=== PATIENT | female | born 1995 ===

== ENCOUNTER 2017-02-27 06:04 | Emergency (ER) | payer BC ==
[2017-02-27 06:15] VITALS: O2SAT 100
[2017-02-27 06:45] LABS: RBC URINE 4 /hpf (0-3); URINE BACTERIA MANY (<OCC); WBC URINE 42 /hpf (0-5)
[2017-02-27 06:46] LABS: URINE BILIRUBIN NEGATIVE (NEGATIVE); URINE COLOR Yellow (YELLOW); URINE GLUCOSE (UA) NORMAL (Normal); URINE KETONE NEGATIVE (NEGATIVE); URINE LEUKOCYTE ESTERASE 3+ Leu/uL (Negative); URINE PROTEIN NEGATIVE (NEGATIVE); URINE UROBILINOGEN NORMAL mg/dL (0.2-1.0)
[2017-02-27 06:47] LABS: URINE BLOOD 1+ (NEGATIVE)
[2017-02-27] MEDS ORDERED: Sodium Chloride 0.9% 1,000 ML IV ONE (07:13)
[2017-02-27] MEDS ORDERED: cefTRIAXone IV 1 gm in Dextros 50 ML IVPB ONE ×2 (07:14→07:29)
--- NOTE | 2017-02-27 07:18 | C.PDOC ---
History Of Present Illness 22 yo female no prior hx, presents with abdominal pain x 4 hours. pt states unsure if she is . states she has dysuria. has nausea no vomiting. no fevers, no diarrhea, no other complaints Time Seen by Provider: 02/27/17 07:10 Chief Complaint (Nursing): Abdominal Pain Past Medical History Reviewed: Historical Data, Nursing Documentation, Vital Signs Vital Signs: Last Vital Signs Temp 97.9 F 02/27/17 06:13 Pulse 91 H 02/27/17 06:13 Resp 16 02/27/17 06:13 BP 119/68 02/27/17 06:13 Pulse Ox 100 02/27/17 07:20 Family History: States: Unknown Family Hx - Social History Hx Alcohol Use: Yes Hx Substance Use: No - Immunization History Hx Tetanus Toxoid Vaccination: No Hx Influenza Vaccination: No Hx Pneumococcal Vaccination: No Review Of Systems Gastrointestinal: Positive for: Nausea, Abdominal Pain. Negative for: Vomiting Physical Exam - Physical Exam Appears: Well, No Acute Distress Skin: Normal Color, Warm, Dry Eye(s): bilateral: Normal Inspection, PERRL, EOMI Nose: Normal Throat: Normal Neck: Normal Cardiovascular: Rhythm Regular Respiratory: Normal Breath Sounds Gastrointestinal/Abdominal: Normal Exam, Soft, Tenderness (epigastric), No Guarding, No Rebound Back: Normal Inspection Extremity: Normal ROM ED Course And Treatment - Laboratory Results Result Diagrams: 02/27/17 07:25 02/27/17 07:25 O2 Sat by Pulse Oximetry: 100 Medical Decision Making Medical Decision Making: consider g astritis, pud, uti. labs hydration, pain control, reassess 850: pt reassesed. abd soft no rlq ttp, mild suprapubic ttp. labs unremarkable. advise outpt f/u and return precautions Disposition - Disposition Referrals: [facility] [Outside] [facility] [Outside] [place] [facility] [employer] [Outside] Disposition: HOME/ ROUTINE Disposition Time: 08:52 Condition: STABLE Additional Instructions: please follow up with your doctor/clinic. return to er with worsening symptoms or concerns. Prescriptions: Nitrofurantoin Macrocrystals [Macrobid] 100 mg PO BID #14 cap Instructions: Urinary Tract Infection in Women (GEN), Acute Abdominal Pain (ED) Print Language: UKRAINIAN - Clinical Impression Clinical Impression: Abdominal pain, UTI (urinary tract infection)
[2017-02-27] MEDS ORDERED: Sodium Chloride 0.9% 1,000 ML ONE (07:29)
[2017-02-27 07:30] LABS: BASO # 0.1 K/uL (0.0-0.2); BASO % 0.9 % (0.0-2.0); EOS # 0.4 K/uL (0.0-0.7); EOS % 4.6 % (0.0-4.0); HEMATOCRIT 34.7 % (34.0-47.0); LYMPH # 2.6 K/uL (1.0-4.3); LYMPH % 33.1 % (20.0-40.0); MEAN CELL VOLUME 81.8 fL (81.0-99.0); MEAN CORPUSCULAR HEMOGLOBIN 26.6 pg (27.0-31.0); MEAN CORPUSCULAR HGB CONC 32.5 g/dL (33.0-37.0); MEAN PLATELET VOLUME 10.7 fL (7.2-11.7); MONO # 0.5 K/uL (0.0-0.8); RED CELL DISTRIBUTION WIDTH 13.5 % (11.5-14.5); WHITE BLOOD COUNT 7.8 K/uL (4.8-10.8)
[2017-02-27 07:45] LABS: CHLORIDE 101 mmol/L (98-107); POTASSIUM 3.7 mmol/L (3.6-5.2); SODIUM 137 mmol/L (132-148)
[2017-02-27 07:47] LABS: ALKALINE PHOSPHATASE 68 U/L (38-126); AST/SGOT 21 U/L (14-36); BILIRUBIN,TOTAL 0.3 mg/dL (0.2-1.3); CARBON DIOXIDE 26 mmol/L (22-30); GFR AFRICAN-AMERICAN > 60
[2017-02-27 07:48] LABS: ALB/GLOB RATIO 1.2 (1.0-2.1); ALT/SGPT 22 U/L (9-52); BLOOD UREA NITROGEN 16 mg/dL (7-17); CALCIUM 8.6 mg/dl (8.6-10.4); GLUCOSE,RANDOM 89 mg/dL (65-105); TOTAL PROTEIN 6.6 g/dL (6.3-8.3)
[2017-02-27 09:07] VITALS: BP 98/57; PULSE 70; RESP 18; TEMP 97.8
== END 2017-02-27 09:07 | disposition home or self-care (01) ==
LOC: C.ER 06:04
DX: N39.0 Urinary tract infection, site not specified (principal); R10.13 Epigastric pain
CPT/HCPCS: 80053; 81001; 83690; 84703; 85025; 85610; 85730; 96361; 96365; 96375; 99285; J0696; J1885; J2405; J7040

== ENCOUNTER 2017-05-19 11:04 | Emergency (ER) | payer BC ==
[2017-05-19 11:20] VITALS: RESP 18
[2017-05-19] MEDS ORDERED: Sodium Chloride 0.9% 1,000 ML IV ONE (11:38)
--- NOTE | 2017-05-19 11:43 | C.PDOC ---
History Of Present Illness 22 y/o female presents to ED with complaints of Headache and lower back pain 3/10 since Monday. Patient states pain was worse today and took Tylenol at 7am with minimal improvement which prompted visit to ED. Patient is 13 weeks and reports 2 vomiting episodes yesterday with an associated diffuse abdominal pain that started today. An ultrasound was done by PMD 3 weeks ago with normal results. Patient denies fever, chills, vision changes, diarrhea, urinary symptoms or any other complaints at this time. Time Seen by Provider: 05/19/17 11:34 Chief Complaint (Nursing): Headache History Per: Patient History/Exam Limitations: no limitations Onset/Duration Of Symptoms: Days Current Symptoms Are (Timing): Still Present Past Medical History Reviewed: Historical Data, Nursing Documentation, Vital Signs Vital Signs: Last Vital Signs Temp 98.9 F 05/19/17 11:19 Pulse 106 H 05/19/17 11:19 Resp 18 05/19/17 11:19 BP 111/72 05/19/17 11:19 Pulse Ox 99 05/19/17 11:48 Family History: States: Unknown Family Hx - Social History Hx Alcohol Use: Yes Hx Substance Use: No - Immunization History Hx Tetanus Toxoid Vaccination: No Hx Influenza Vaccination: No Hx Pneumococcal Vaccination: No Review Of Systems Except As Marked, All Systems Reviewed And Found Negative. Constitutional: Negative for: Fever, Chills Cardiovascular: Negative for: Chest Pain Respiratory: Negative for: Shortness of Breath Gastrointestinal: Positive for: Nausea, Vomiting, Abdominal Pain. Negative for : Diarrhea Genitourinary: Negative for: Dysuria, Vaginal Bleeding Musculoskeletal: Positive for: Back Pain Skin: Negative for: Rash Neurological: Positive for: Headache Physical Exam - Physical Exam Appears: Non-toxic, No Acute Distress Skin: Normal Color, Warm, No Rash Head: Atraumatic, Normacephalic Eye(s): bilateral: Normal Inspection Oral Mucosa: Moist Lips: Other (Fever blister lower left lip) Cardiovascular: Rhythm Regular Respiratory: Normal Breath Sounds, No Rales, No Rhonchi, No Wheezing Gastrointestinal/Abdominal: Soft, No Tenderness, No Guarding, No Rebound Extremity: Normal ROM Neurological/Psych: Oriented x3, Normal Speech ED Course And Treatment - Laboratory Results Result Diagrams: 05/19/17 12:23 O2 Sat by Pulse Oximetry: 99 (RA) Pulse Ox Interpretation: Normal Disposition - Disposition Disposition Time: 12:29 Condition: STABLE Forms: [employer] (Mauritian) - Clinical Impression Clinical Impression: Headache, Vomiting alone, - Scribe Statement The provider has reviewed the documentation as recorded by the Scriberica De Souza All medical record entries made by the Scribe were at my direction and personally dictated by me. I have reviewed the chart and agree that the record accurately reflects my personal performance of the history, physical exam, medical decision making, and the department course for this patient. I have also personally directed, reviewed, and agree with the discharge instructions and disposition. Physician Patient Turnover Patient Signed Over To: Orquidea Preciado Handoff Comments: Patient endorsed to Dr. Preciado. + IUP, [place], WHITLEY, getting IV fluids, pending re-evaluation and dispo.
[2017-05-19] MEDS ORDERED: Sodium Chloride 0.9% 1,000 ML ONE (12:11)
[2017-05-19 12:23] LABS: RBC URINE 3 /hpf (0-3); URINE BILIRUBIN NEGATIVE (NEGATIVE); URINE BLOOD NEGATIVE (NEGATIVE); URINE COLOR Yellow (YELLOW); URINE GLUCOSE (UA) NORMAL (Normal); URINE KETONE NEGATIVE (NEGATIVE); URINE LEUKOCYTE ESTERASE NEG Leu/uL (Negative); URINE PROTEIN NEGATIVE (NEGATIVE); URINE UROBILINOGEN NORMAL mg/dL (0.2-1.0); WBC URINE 3 /hpf (0-5)
[2017-05-19 12:28] LABS: BASO # 0.1 K/uL (0.0-0.2); BASO % 0.6 % (0.0-2.0); EOS # 0.1 K/uL (0.0-0.7); EOS % 1.4 % (0.0-4.0); HEMATOCRIT 29.5 % (34.0-47.0); LYMPH # 1.8 K/uL (1.0-4.3); LYMPH % 19.6 % (20.0-40.0); MEAN CELL VOLUME 80.8 fL (81.0-99.0); MEAN CORPUSCULAR HEMOGLOBIN 26.9 pg (27.0-31.0); MEAN CORPUSCULAR HGB CONC 33.4 g/dL (33.0-37.0); MEAN PLATELET VOLUME 9.2 fL (7.2-11.7); MONO # 0.4 K/uL (0.0-0.8); MONO % 4.3 % (0.0-10.0); RED CELL DISTRIBUTION WIDTH 13.6 % (11.5-14.5); WHITE BLOOD COUNT 9.3 K/uL (4.8-10.8)
[2017-05-19 12:38] LABS: ALKALINE PHOSPHATASE 101 U/L (38-126); ALT/SGPT 35 U/L (9-52); AST/SGOT 26 U/L (14-36); BILIRUBIN,TOTAL 0.3 mg/dL (0.2-1.3); BLOOD UREA NITROGEN 8 mg/dL (7-17); CALCIUM 8.9 mg/dl (8.6-10.4); CARBON DIOXIDE 24 mmol/L (22-30); CHLORIDE 101 mmol/L (98-107); GFR AFRICAN-AMERICAN > 60; GLUCOSE,RANDOM 75 mg/dL (65-105); POTASSIUM 3.6 mmol/L (3.6-5.2); SODIUM 135 mmol/L (132-148); TOTAL PROTEIN 6.4 g/dL (6.3-8.3)
[2017-05-19 14:28] VITALS: BP 107/64; PULSE 71; TEMP 97.9; O2SAT 100
== END 2017-05-19 15:37 | disposition home or self-care (01) ==
LOC: C.ER 11:04
DX: O26.891 Other specified pregnancy related conditions, first trimester (principal); R51 Headache; R11.11 Vomiting without nausea; Z3A.13 13 weeks gestation of pregnancy
CPT/HCPCS: 80053; 81001; 84702; 84703; 85025; 96361; 96374; 96375; 99285; J2405; J7040

== ENCOUNTER 2018-03-04 21:21 | Emergency (ER) | payer SELFPAY ==
[2018-03-04 21:29] VITALS: O2SAT 99
[2018-03-04] MEDS ORDERED: Sodium Chloride 0.9% 1,000 ML IV STA (21:55)
[2018-03-04] MEDS ORDERED: Sodium Chloride 0.9% 1,000 ML ONE (22:17)
[2018-03-04 22:26] LABS: BASO # 0.1 K/uL (0.0-0.2); BASO % 0.7 % (0.0-2.0); EOS # 0.1 K/uL (0.0-0.7); EOS % 1.2 % (0.0-4.0); HEMOGLOBIN 11.1 g/dL (11.0-16.0); LYMPH # 1.9 K/uL (1.0-4.3); MEAN CELL VOLUME 80.9 fL (81.0-99.0); MEAN CORPUSCULAR HEMOGLOBIN 27.1 pg (27.0-31.0); MEAN CORPUSCULAR HGB CONC 33.5 g/dL (33.0-37.0); MEAN PLATELET VOLUME 10.5 fL (7.2-11.7); MONO # 0.5 K/uL (0.0-0.8); MONO % 5.6 % (0.0-10.0); NEUT # 6.3 K/uL (1.8-7.0); NEUT % 71.5 % (50.0-75.0); NRBC % 0.1 % (0.0-2.0); RBC 4.09 Mil/uL (3.80-5.20); RED CELL DISTRIBUTION WIDTH 13.3 % (11.5-14.5); WHITE BLOOD COUNT 8.8 K/uL (4.8-10.8)
[2018-03-04 22:38] LABS: ALB/GLOB RATIO 1.3 (1.0-2.1); ALBUMIN 4.1 g/dL (3.5-5.0); ALT/SGPT 83 U/L (9-52); AST/SGOT 70 U/L (14-36); BLOOD UREA NITROGEN 8 mg/dL (7-17); CALCIUM 9.2 mg/dl (8.6-10.4); GFR AFRICAN-AMERICAN > 60; GFR NON-AFRICAN AMERICAN > 60
--- NOTE | 2018-03-04 22:50 | C.PDOC ---
History Of Present Illness 23 year old female presents to the ED c/o headache that started 1 hour prior to arrival. Patient states she took some Motrin at home with no relief. Patient reports she does not get headaches normally. Patient denies injury, fall, trauma , nausea, vomit, fever, chills, visual changes, dizziness. Time Seen by Provider: 03/04/18 21:31 Chief Complaint (Nursing): Headache History Per: Patient History/Exam Limitations: no limitations Onset/Duration Of Symptoms: Hrs (1) Current Symptoms Are (Timing): Still Present Preceeding Symptoms: None Recent travel outside of the [place]: No Additional History Per: Patient Past Medical History Reviewed: Historical Data, Nursing Documentation, Vital Signs Vital Signs: Last Vital Signs Temp 98.5 F 03/04/18 21:26 Pulse 80 03/04/18 21:26 Resp 14 03/04/18 21:26 BP 122/79 03/04/18 21:26 Pulse Ox 99 03/04/18 23:25 - Medical History PMH: No Chronic Diseases Surgical History: No Surg Hx Family History: States: Unknown Family Hx - Social History Hx Alcohol Use: Yes Hx Substance Use: No - Immunization History Hx Tetanus Toxoid Vaccination: No Hx Influenza Vaccination: No Hx Pneumococcal Vaccination: No Review Of Systems Constitutional: Negative for: Fever, Chills Eyes: Negative for: Vision Change Cardiovascular: Negative for: Chest Pain Respiratory: Negative for: Shortness of Breath Gastrointestinal: Negative for: Nausea, Vomiting Skin: Negative for: Rash Neurological: Positive for: Headache. Negative for: Dizziness Physical Exam - Physical Exam Appears: Non-toxic, No Acute Distress Skin: Normal Color, Warm, Dry Head: Atraumatic, Normacephalic Eye(s): bilateral: Normal Inspection, PERRL, EOMI Ear(s): Bilateral: Normal Oral Mucosa: Moist Neck: Normal ROM, No Midline Cervical Tenderness, Supple Extremity: Normal ROM, No Tenderness, No Swelling Neurological/Psych: Oriented x3, Normal Speech, Normal Motor, Normal Sensation Gait: Steady ED Course And Treatment - Laboratory Results Result Diagrams: 03/04/18 22:23 03/04/18 22:23 O2 Sat by Pulse Oximetry: 99 (On RA) Pulse Ox Interpretation: Normal - CT Scan/US CT head Other Rad Studies (CT/US): Read By Radiologist, Radiology Report Reviewed CT/US Interpretation: Name: PANTERA PHILIP Age: 23Years F Date: . SSN: [id number] : 1995. Study: CT HEAD WO Requesting Physician: Lyndsey Cagle PA-C. Images: 124. Addl Studies: Provided Clinical History: Severe Headache. CONFIDENTIALITY STATEMENT. This transmission is confidential and is intended to be a privileged communication. It is intended only for the use of the addressee. Access to this. message by anyone else is unauthorized. If you are not the intended recipient, any disclosure, copying, distribution or any action taken, or omitted to. be taken in reliance on it is prohibited and may be unlawful. If you received this communication in error, please notify us by telephone, so that return. of this document to us can be arranged. Page 1 of 2. EXAM: CT Head Without Intravenous Contrast. CLINICAL HISTORY: 23 years old, female; Pain; Headache; Additional info: Severe headache. TECHNIQUE: Axial computed tomography images of the head/brain without intravenous contrast. All CT scans at. this facility use one or more dose reduction techniques, viz.: automated exposure control; ma/kV. adjustment per patient size (including targeted exams where dose is matched to indication; i.e. head); . or iterative reconstruction technique. COMPARISON: No relevant prior studies available. FINDINGS: Brain: No intracranial hemorrhage. No mass. No definite edema. Ventricles: No hydrocephalus. Bones/joints: No acute fracture. Soft tissues: Unremarkable. Sinuses: Complete opacification of RIGHT frontal sinus. Mild mucosal thickening of ethmoid. sinuses. Scattered minimal mucosal thickening of remaining sinuses. Mastoid air cells: No mastoid effusion. Orbits: Unremarkable as visualized. IMPRESSION: 1. No definite acute intracranial abnormality. 2. Sinus disease. Thank you for allowing us to participate in the care of your patient. Dictated and Authenticated by: Km Gonsales MD. 03/04/2018 10:56 PM Eastern Time ([place] & [place]) Progress Note: Plan: - CT head. - Labs. - Regaln 10 mg IVPB. - IV fluids. On re-evaluation patient feels better and is stable to be d/c home with PMD/ neurologist follow up. Disposition - Disposition Referrals: Laureano Aguero MD [Staff Provider] - Disposition: HOME/ ROUTINE Disposition Time: 23:23 Condition: STABLE Additional Instructions: Follow up with PMD and neurologist within 1-2 days. Return to ED if feel worse. Prescriptions: Amoxicillin/Clavulanate [Augmentin 875 MG-125 MG] 1 tab PO BID #20 tab Acetaminophen/Butalbital/Caf [Fioricet] 1 tab PO TID PRN #20 tab PRN Reason: Headache Fluticasone Nasal [Flonase] 1 spr NS BID #1 spr Instructions: Sinusitis, Adult (DC), Headache, Adult (DC) Forms: [employer] (Kazakh) Print Language: ROMANSH - Clinical Impression Clinical Impression: Headache, Sinusitis - PA / CARE CONNECTOR / Resident Statement MD/DO has reviewed & agrees with the documentation as recorded. - Scribe Statement The provider has reviewed the documentation as recorded by the Scribe Shawn Kent All medical record entries made by the Scribe were at my direction and personally dictated by me. I have reviewed the chart and agree that the record accurately reflects my personal performance of the history, physical exam, medical decision making, and the department course for this patient. I have also personally directed, reviewed, and agree with the discharge instructions and disposition.
--- NOTE | 2018-03-04 22:56 | CT ---
EXAM: CT Head Without Intravenous Contrast CLINICAL HISTORY: 23 years old, female; Pain; Headache; Additional info: Severe headache TECHNIQUE: Axial computed tomography images of the head/brain without intravenous contrast. All CT scans at this facility use one or more dose reduction techniques, viz.: automated exposure control; ma/kV adjustment per patient size (including targeted exams where dose is matched to indication; i.e. head); or iterative reconstruction technique. COMPARISON: No relevant prior studies available. FINDINGS: Brain: No intracranial hemorrhage. No mass. No definite edema. Ventricles: No hydrocephalus. Bones/joints: No acute fracture. Soft tissues: Unremarkable. Sinuses: Complete opacification of RIGHT frontal sinus. Mild mucosal thickening of ethmoid sinuses. Scattered minimal mucosal thickening of remaining sinuses. Mastoid air cells: No mastoid effusion. Orbits: Unremarkable as visualized. IMPRESSION: 1. No definite acute intracranial abnormality. 2. Sinus disease.
[2018-03-04 23:35] VITALS: BP 103/65; PULSE 73; RESP 16; TEMP 98.4
== END 2018-03-04 23:34 | disposition home or self-care (01) ==
LOC: C.ER 21:21
DX: J32.9 Chronic sinusitis, unspecified (principal); R51 Headache
CPT/HCPCS: 70450; 80053; 85025; 99285; J2765; J7040

== ENCOUNTER 2018-03-19 17:36 | Emergency (ER) | payer SELFPAY ==
[2018-03-19 18:07] VITALS: RESP 20; BMI 27.4
[2018-03-19] MEDS ORDERED: Sodium Chloride 0.9% 1,000 ML IV ONE ×2 (18:07→21:40)
[2018-03-19 18:30] LABS: BASO # 0.1 K/uL (0.0-0.2); BASO % 1.8 % (0.0-2.0); EOS # 0.3 K/uL (0.0-0.7); EOS % 3.6 % (0.0-4.0); HEMOGLOBIN 12.1 g/dL (11.0-16.0); LYMPH # 1.5 K/uL (1.0-4.3); LYMPH % 20.2 % (20.0-40.0); MEAN CELL VOLUME 81.7 fL (81.0-99.0); MEAN CORPUSCULAR HEMOGLOBIN 26.1 pg (27.0-31.0); MEAN CORPUSCULAR HGB CONC 31.9 g/dL (33.0-37.0); MEAN PLATELET VOLUME 10.6 fL (7.2-11.7); MONO # 0.4 K/uL (0.0-0.8); MONO % 4.9 % (0.0-10.0); NEUT % 69.5 % (50.0-75.0); NRBC % 0.1 % (0.0-2.0); RBC 4.62 Mil/uL (3.80-5.20); RED CELL DISTRIBUTION WIDTH 13.4 % (11.5-14.5); WHITE BLOOD COUNT 7.2 K/uL (4.8-10.8)
--- NOTE | 2018-03-19 18:40 | C.PDOC ---
History Of Present Illness 23 y/o female brought to ER by ambulance for evaluation of a near syncopal episode after her found her on the floor at home. Patient states that she became dizzy and fell on the floor. Patient reports that there is a bruise to her head and she has a headache. Denies having nausea, vomiting, and hx of DVT/PE. Of note, patient is s/p delivery of 4 month old child without complications. Time Seen by Provider: 03/19/18 18:02 Chief Complaint (Nursing): Syncope History Per: Patient History/Exam Limitations: no limitations Onset/Duration Of Symptoms: Hrs Current Symptoms Are (Timing): Still Present Severity: Moderate Past Medical History Reviewed: Historical Data, Nursing Documentation, Vital Signs Vital Signs: Last Vital Signs Temp 98.3 F 03/19/18 18:06 Pulse 67 03/19/18 18:06 Resp 20 03/19/18 18:06 BP 126/76 03/19/18 18:06 Pulse Ox 99 03/19/18 18:58 - Medical History PMH: No Chronic Diseases Surgical History: No Surg Hx Family History: States: No Known Family Hx - Social History Hx Alcohol Use: No Hx Substance Use: No - Immunization History Hx Tetanus Toxoid Vaccination: No Hx Influenza Vaccination: No Hx Pneumococcal Vaccination: No Review Of Systems Except As Marked, All Systems Reviewed And Found Negative. Constitutional: Negative for: Fever, Chills Neurological: Positive for: Dizziness, Other (near syncope) Physical Exam - Physical Exam Appears: Non-toxic, No Acute Distress Skin: Normal Color, Warm, Dry Head: Normacephalic, Other ((+)contusion to right forehead, (-) skull depression ) Eye(s): bilateral: Normal Inspection, PERRL, EOMI Nose: Normal Oral Mucosa: Moist Neck: Normal ROM, No Midline Cervical Tenderness, No Step Off Deformity Chest: Symmetrical Cardiovascular: Rhythm Regular Respiratory: Normal Breath Sounds, No Rales, No Rhonchi, No Wheezing Gastrointestinal/Abdominal: Normal Exam, Bowel Sounds ((+) bowel sounds), Soft, No Tenderness, No Guarding, No Rebound Neurological/Psych: Oriented x3, Normal Speech ED Course And Treatment - Laboratory Results Result Diagrams: 03/19/18 18:24 03/19/18 18:24 O2 Sat by Pulse Oximetry: 99 (RA) Pulse Ox Interpretation: Normal Medical Decision Making Medical Decision Making: Assessment: Near Syncope, Minor Head Injury Plan: --Labs --UA --ECG --CXR --CT - Head -- IV Fluids 19:00 Case signed out to . Disposition Discussed With : Virgilio Ross - Disposition Disposition Time: 19:00 Condition: STABLE Forms: [facility] (Wallisian) - Clinical Impression Clinical Impression: Dizziness, Head injury - Scribe Statement The provider has reviewed the documentation as recorded by the Scribe Gavin Mcmanus Provider Attestation: All medical record entries made by the Scribe were at my direction and personally dictated by me. I have reviewed the chart and agree that the record accurately reflects my personal performance of the history, physical exam, medical decision making, and the department course for this patient. I have also personally directed, reviewed, and agree with the discharge instructions and disposition. Physician Patient Turnover Patient Signed Over To: Virgilio Ross Handoff Comments: labs, imaging, reevaluation and disposition
[2018-03-19 18:49] LABS: BLOOD UREA NITROGEN 10 mg/dL (7-17)
[2018-03-19 18:52] LABS: ALB/GLOB RATIO 1.4 (1.0-2.1); ALBUMIN 4.3 g/dL (3.5-5.0); ALT/SGPT 28 U/L (9-52); AST/SGOT 26 U/L (14-36); CALCIUM 9.5 mg/dl (8.6-10.4); GFR AFRICAN-AMERICAN > 60; GFR NON-AFRICAN AMERICAN > 60
--- NOTE | 2018-03-19 18:57 | CT ---
PROCEDURE: CT HEAD WITHOUT CONTRAST. HISTORY: syncope COMPARISON: None available. TECHNIQUE: Axial computed tomography images were obtained through the head/brain without intravenous contrast. Radiation dose: Total exam DLP = 79.93 mGy-cm. This CT exam was performed using one or more of the following dose reduction techniques: Automated exposure control, adjustment of the mA and/or kV according to patient size, and/or use of iterative reconstruction technique. FINDINGS: HEMORRHAGE: No intracranial hemorrhage. BRAIN: No mass effect or edema. No atrophy or chronic microvascular ischemic changes. VENTRICLES: Unremarkable. No hydrocephalus. CALVARIUM: Unremarkable. PARANASAL SINUSES: Chronic frontal, ethmoid and sphenoid sinusitis. MASTOID AIR CELLS: Unremarkable as visualized. No inflammatory changes. OTHER FINDINGS: None. IMPRESSION: Chronic paranasal sinusitis. No intracranial mass, hemorrhage or evidence of acute infarct.
[2018-03-19 19:24] LABS: SQUAMOUS EPITHIAL 9 /hpf (0-5); URINE BACTERIA OCC (<OCC); URINE BILIRUBIN NEGATIVE (NEGATIVE); URINE BLOOD NEGATIVE (NEGATIVE); URINE CLARITY Hazy (Clear); URINE COLOR Yellow (YELLOW); URINE GLUCOSE (UA) NORMAL (Normal); URINE LEUKOCYTE ESTERASE 1+ Leu/uL (Negative); URINE PROTEIN NEGATIVE (NEGATIVE); URINE UROBILINOGEN NORMAL mg/dL (0.2-1.0)
[2018-03-19] MEDS ORDERED: Sodium Chloride 0.9% 1,000 ML ONE ×2 (20:08→21:59)
[2018-03-19 22:06] VITALS: BP 108/67; PULSE 63; TEMP 97.9; O2SAT 100
--- NOTE | 2018-03-20 09:23 | RAD ---
HISTORY: SOB COMPARISON: No prior. TECHNIQUE: Chest PA and lateral FINDINGS: LUNGS: No active pulmonary disease. PLEURA: No significant pleural effusion identified. No pneumothorax apparent. CARDIOVASCULAR: Normal. OSSEOUS STRUCTURES: No significant abnormalities. VISUALIZED UPPER ABDOMEN: Normal. OTHER FINDINGS: None. IMPRESSION: No active disease.
== END 2018-03-19 22:58 | disposition home or self-care (01) ==
LOC: C.ER 17:36
DX: S09.90XA Unspecified injury of head, initial encounter (principal); W18.39XA Other fall on same level, initial encounter; Y92.009 Unspecified place in unspecified non-institutional (private) residence as the place of occurrence of the external cause; R42 Dizziness and giddiness
CPT/HCPCS: 70450; 71046; 80053; 81001; 84484; 85025; 96360; 96361; 99285; J7030

== ENCOUNTER 2018-05-25 21:23 | Emergency (ER) | payer SELFPAY ==
[2018-05-25 21:23] VITALS: BMI 27.4
[2018-05-25 21:57] VITALS: BP 106/69; TEMP 98.1
[2018-05-25 22:27] LABS: SQUAMOUS EPITHIAL 5 /hpf (0-5); URINE BACTERIA RARE (<OCC); URINE BILIRUBIN NEGATIVE (NEGATIVE); URINE BLOOD 3+ (NEGATIVE); URINE CLARITY Hazy (Clear); URINE COLOR Yellow (YELLOW); URINE GLUCOSE (UA) NORMAL (Normal); URINE LEUKOCYTE ESTERASE NEG Leu/uL (Negative); URINE PROTEIN NEGATIVE (NEGATIVE)
--- NOTE | 2018-05-25 22:37 | C.PDOC ---
History Of Present Illness 23 year old female presents to the ED c/o LLQ abdominal pain for the past 1 day. Patient states she is concerned she might have appendicitis. Patient is also c/o tenderness to her right trapezius for the past 1 day. Patient denies injury, fall, trauma, weakness, numbness, CP, SOB, headache, nausea, vomit, diarrhea. Time Seen by Provider: 05/25/18 22:29 Chief Complaint (Nursing): Back Pain History Per: Patient History/Exam Limitations: no limitations Onset/Duration Of Symptoms: Days (1) Current Symptoms Are (Timing): Still Present Location Of Pain/Discomfort: LLQ Radiation Of Pain To:: Back Quality Of Discomfort: "Pain" Associated Symptoms: denies: Nausea, Vomiting, Diarrhea, Urinary Symptoms Exacerbating Factors: None Alleviating Factors: None Recent travel outside of the [place]: No Additional History Per: Patient Abnormal Vaginal Bleeding: No Past Medical History Reviewed: Historical Data, Nursing Documentation, Vital Signs Vital Signs: Last Vital Signs Temp 98.1 F 05/25/18 21:53 Pulse 63 05/25/18 23:05 Resp 18 05/25/18 23:05 BP 106/69 05/25/18 21:53 Pulse Ox 100 05/25/18 23:05 - Medical History PMH: No Chronic Diseases Surgical History: No Surg Hx Family History: States: Unknown Family Hx - Social History Hx Alcohol Use: No Hx Substance Use: No - Immunization History Hx Tetanus Toxoid Vaccination: No Hx Influenza Vaccination: No Hx Pneumococcal Vaccination: No Review Of Systems Constitutional: Negative for: Fever, Chills Eyes: Negative for: Vision Change Cardiovascular: Negative for: Chest Pain, Palpitations Respiratory: Negative for: Cough, Shortness of Breath Gastrointestinal: Positive for: Abdominal Pain. Negative for: Nausea, Vomiting , Diarrhea Musculoskeletal: Positive for: Back Pain Skin: Negative for: Rash Neurological: Negative for: Weakness, Numbness Physical Exam - Physical Exam Appears: Non-toxic, No Acute Distress Skin: Normal Color, Warm, Dry, No Rash Head: Atraumatic, Normacephalic Eye(s): bilateral: Normal Inspection Neck: Normal ROM, Supple Chest: Symmetrical Cardiovascular: Rhythm Regular Respiratory: Normal Breath Sounds, No Rales, No Rhonchi, No Wheezing Gastrointestinal/Abdominal: Soft, No Tenderness (to deep palpation of the LLQ), No Guarding, No Rebound, Other (negative taylor's and mcBurneys) Back: Other (right trapezius tenderness no shoulder involvement ) Extremity: Normal ROM, No Tenderness, No Swelling Neurological/Psych: Oriented x3, Normal Speech Gait: Steady ED Course And Treatment O2 Sat by Pulse Oximetry: 96 (ON RA) Pulse Ox Interpretation: Normal Medical Decision Making Medical Decision Making: crampy LLQ abd discomfort, resolved, normal exam musculoskeletal R trapezius discomfort, digitally reproducable LOW susp of referred abd discomfort. preg neg. Disposition Doctor Will See Patient In The: Office Counseled Patient/Family Regarding: Studies Performed, Diagnosis - Disposition Referrals: [facility] [Outside] [facility] [employer] [facility] [Outside] [facility] [Outside] [facility] [Outside] Disposition: HOME/ ROUTINE Disposition Time: 22:37 Condition: GOOD Additional Instructions: dolor del hombro: bolsa de hielo 1/2 hora por hora, nada caliente Ibuprofeno 400-600 mg cada 6 horas ag necessario dolor del abdomen NO tiene Appendicitis. Prueba de embarasso: NEGATIVO Instructions: Muscle Strain (DC), Gas and Bloating (ED) Forms: [employer] (Venezuelan) Print Language: URDU - Clinical Impression Clinical Impression: Colicky LLQ abdominal pain, Trapezius muscle strain - Scribe Statement The provider has reviewed the documentation as recorded by the Scribe Shawn Kent All medical record entries made by the Scribe were at my direction and personally dictated by me. I have reviewed the chart and agree that the record accurately reflects my personal performance of the history, physical exam, medical decision making, and the department course for this patient. I have also personally directed, reviewed, and agree with the discharge instructions and disposition.
[2018-05-25 23:06] VITALS: PULSE 63; RESP 18
[2018-05-25 23:25] VITALS: O2SAT 96
== END 2018-05-25 23:07 | disposition home or self-care (01) ==
LOC: C.ER 21:23
DX: R10.32 Left lower quadrant pain (principal); S46.911A Strain of unspecified muscle, fascia and tendon at shoulder and upper arm level, right arm, initial encounter; X58.XXXA Exposure to other specified factors, initial encounter; Y92.9 Unspecified place or not applicable

== ENCOUNTER 2019-01-08 20:35 | Emergency (ER) | payer SELFPAY ==
[2019-01-08 20:35] VITALS: BMI 27.4
[2019-01-08 20:54] VITALS: RESP 18; O2SAT 100
[2019-01-08] MEDS ORDERED: Lidocaine 1% Inj (20ml) INFIL STA (20:59)
[2019-01-08] MEDS ORDERED: Tetanus/Diphtheria Toxoids 0.5 ml Syringe IM ONE ×2 (20:59→21:09)
[2019-01-08] MEDS ORDERED: Lidocaine Hydrochloride 5 ML INJ ONE (21:06)
[2019-01-08] MEDS ORDERED: Bacitracin 500 Units/gm Oint Foilpak UD TOP ONE (21:54)
--- NOTE | 2019-01-08 21:59 | C.PDOC ---
History Of Present Illness Patient presents to ED for evaluation of right hand/wrist lacerations/abrasions after her hand went through a mirror in her home [employer]. Patient denies any other injuries, sensory changes, decreased ROM of digits. She is not UTD with tetanus vaccination. Time Seen by Provider: 01/08/19 20:54 Chief Complaint (Nursing): Abnormal Skin Integrity History Per: Patient History/Exam Limitations: no limitations Onset/Duration Of Symptoms: Mins Current Symptoms Are (Timing): Still Present Location Of Injury: Right: Hand (right hand/wrist), Anterior: Hand Quality Of Symptoms: Painful Severity: Mild Past Medical History Reviewed: Historical Data, Nursing Documentation, Vital Signs Vital Signs: Last Vital Signs Temp 99.0 F 01/08/19 20:50 Pulse 85 01/08/19 20:50 Resp 18 01/08/19 20:50 BP 115/74 01/08/19 20:50 Pulse Ox 100 01/08/19 20:50 - Medical History PMH: No Chronic Diseases Denies: Chronic Kidney Disease Family History: States: No Known Family Hx - Social History Hx Alcohol Use: Yes Hx Substance Use: No - Immunization History Hx Tetanus Toxoid Vaccination: No Hx Influenza Vaccination: Yes Hx Pneumococcal Vaccination: No Review Of Systems Constitutional: Negative for: Fever, Chills Cardiovascular: Negative for: Chest Pain, Palpitations Respiratory: Negative for: Shortness of Breath Skin: Positive for: Other (right hand and wrist lacerations and abrasions). Negative for: Rash Neurological: Negative for: Weakness, Numbness Physical Exam - Physical Exam Appears: Well, Non-toxic, No Acute Distress Skin: Warm, Dry, Other (see extremity exam) Eye(s): bilateral: Normal Inspection Cardiovascular: Rhythm Regular Respiratory: Normal Breath Sounds, No Rales, No Rhonchi, No Wheezing Extremity: Normal ROM (all digits right hand and wrist), Capillary Refill (< 2 sec all digits), No Deformity, No Swelling, Other (right hand proximal palmar aspect - approx 2.5 cm laceration, right anterior wrist - approx 1cm laceration; no foreign bodies) Extremity: Bilateral: Normal ROM Pulses: Left Radial: Normal, Right Radial: Normal Neurological/Psych: Oriented x3, Normal Sensation (right hand/wrist) ED Course And Treatment O2 Sat by Pulse Oximetry: 100 (RA) Pulse Ox Interpretation: Normal - Other Rad right hand/wrist Xrays X-Ray: Interpreted by Me, Viewed By Me (no fx/no foreign bodies) Progress Note: Patient given IM tetanus vaccination. Laceration repair done by me - 1% lidocaine local infiltration, approx 4ml total used. Patient tolerated well. Bacitracin and gauze dressing applied by ED nurse. Patient instructed to return to ED in 7 days for suture removal. Laceration - Laceration Repair palmar hand Wound Length (In cm): 2.5 Description Of Wound: Linear Wound Cleansed With: Betadine, Sterile Saline Anesthesia: Lidocaine 1% Wound Examination: Irrigated With Saline, No FB With Wound Exploration, No Tendon Injury With Wound Exploration Wound Closure: Suture Suture Technique And Material Used: Interrupted, Nylon (4 dermal 3.0), Vicryl (1 subcutaneous 3.0) Wound Complexity: Intermediate plmar aspect wrist Wound Length (In cm): 0.5 Description Of Wound: Linear Wound Cleansed With: Betadine Anesthesia: Lidocaine 1%, With Bicarb Wound Examination: Irrigated With Saline, No FB With Wound Exploration, No Te ndon Injury With Wound Exploration Wound Closure: Suture Suture Technique And Material Used: Interrupted, Nylon (3 ethilon 3.0) Wound Complexity: Simple Disposition Counseled Patient/Family Regarding: Diagnosis, Need For Followup, Rx Given - Disposition Referrals: [facility] [Outside] Disposition: HOME/ ROUTINE Disposition Time: 22:00 Condition: STABLE Prescriptions: Bacitracin OINT 1 applic TOP BID #1 tube Ibuprofen [Motrin Tab] 600 mg PO Q6 PRN #30 tab PRN Reason: fever/pain Instructions: Laceration Repair With Stitches (DC) Forms: [employer] (Kazakh) Print Language: URDU - POA Present On Arrival: Falls Or Trauma - Clinical Impression Clinical Impression: Laceration of right hand, Laceration of right wrist
[2019-01-08 22:12] VITALS: BP 112/72; PULSE 80; TEMP 98.8
--- NOTE | 2019-01-09 07:40 | RAD ---
PROCEDURE: Right Hand Radiographs. HISTORY: LACERATION COMPARISON: None. TECHNIQUE: 3 views obtained. FINDINGS: BONES: No acute fracture or destructive bony lesion identified. JOINTS: Normal. No osteoarthritic changes. SOFT TISSUES: No retained radiodense foreign body appreciated. OTHER FINDINGS: None. IMPRESSION: Unremarkable right hand radiographs including soft tissues as discussed above. No fracture identified or retained radiodense foreign body.
--- NOTE | 2019-01-09 07:42 | RAD ---
Date of service: 01/08/2019 PROCEDURE: Right Wrist Radiographs. HISTORY: LACERATION COMPARISON: None. TECHNIQUE: 4 views obtained. FINDINGS: BONES: No acute fracture or destructive bony lesion identified. JOINTS: Normal. No dislocation. SOFT TISSUES: No retained radiodense foreign body or emphysema soft tissue changes grossly evident. Questionable emphysema and deep volar distal forearm soft tissues. OTHER FINDINGS: None. IMPRESSION: No acute fracture, subluxation or dislocation throughout the right wrist. No retained radiodense foreign body evident. Questionable emphysema in the volar right wrist soft tissues.
== END 2019-01-08 22:12 | disposition home or self-care (01) ==
LOC: C.ER 20:35
DX: S61.411A Laceration without foreign body of right hand, initial encounter (principal); S61.511A Laceration without foreign body of right wrist, initial encounter; W45.8XXA Other foreign body or object entering through skin, initial encounter; Y92.009 Unspecified place in unspecified non-institutional (private) residence as the place of occurrence of the external cause